=== PATIENT | male | born 1970 | race Caucasian/White ===

== ENCOUNTER 2018-03-28 10:10 | Emergency (ER) | payer OTHER | END 2018-03-28 11:51 | disposition home or self-care (01) | LOC: E/R 10:10 | DX: M54.12 Radiculopathy, cervical region (principal); R40.2142 Coma scale, eyes open, spontaneous, at arrival to emergency department; R40.2252 Coma scale, best verbal response, oriented, at arrival to emergency department; R40.2362 Coma scale, best motor response, obeys commands, at arrival to emergency department; Z87.891 Personal history of nicotine dependence | CPT/HCPCS: 99283 ==

== ENCOUNTER 2018-03-31 20:21 | Emergency (ER) | payer OTHER | END 2018-03-31 21:48 | disposition home or self-care (01) | LOC: FTE 20:21 | DX: T23.021A Burn of unspecified degree of single right finger (nail) except thumb, initial encounter (principal); M54.12 Radiculopathy, cervical region; F17.210 Nicotine dependence, cigarettes, uncomplicated; Y27.8XXA Contact with other hot objects, undetermined intent, initial encounter; Y92.9 Unspecified place or not applicable | CPT/HCPCS: 99284 ==

== ENCOUNTER 2018-08-06 11:00 | Emergency (ER) | payer MEDICAID, OTHER ==
[2018-08-06] MEDS: KETOROLAC 60 MG INJ IM (11:56)
== END 2018-08-06 12:20 | disposition home or self-care (01) ==
LOC: FTE 11:00
DX: M54.42 Lumbago with sciatica, left side (principal); G89.29 Other chronic pain; F17.210 Nicotine dependence, cigarettes, uncomplicated
CPT/HCPCS: 96372; 99284-25

== ENCOUNTER 2018-08-24 19:01 | Emergency (ER) | payer MEDICAID ==
[2018-08-24] MEDS: KETOROLAC 60 MG INJ IM (22:19)
[2018-08-24] MEDS: DEXAMETHASONE 10 MG/ML 1 ML INJ IM (22:19)
== END 2018-08-24 22:33 | disposition home or self-care (01) ==
LOC: FTE 19:01
DX: M54.41 Lumbago with sciatica, right side (principal); M54.42 Lumbago with sciatica, left side; F17.210 Nicotine dependence, cigarettes, uncomplicated
CPT/HCPCS: 96372; 99284-25; J1100